=== PATIENT | female | born 1995 | race Caucasian/White ===

== ENCOUNTER → 2016-07-21 | Outpatient (CLI) | payer BC ==
--- NOTE | 2016-07-21 16:47 | RADRPT ---
PROCEDURE: XR Chest. CLINICAL INDICATION: Cough. TECHNIQUE: PA and Lateral views of the chest were obtained. COMPARISON: No. FINDINGS: The heart is normal in size. The left-sided aorta is normal. The trachea and hilar structures are normal. The lungs are clear. The diaphragms are flattened. No pleural effusion is noted. The bon y elements are normal. IMPRESSION: 1. No evidence of active cardiopulmonary disease. RPTAT:AAJJ Physician Sheng Date Time Electronically viewed and signed by Physician Sheng on 07/21/2016 16:47 ANGELO/
== END | disposition home or self-care (01) ==
LOC: RAD 15:04
PROVIDERS: ATTEND Internal Medicine
DX: R05 Cough (principal)
CPT/HCPCS: 71020

== ENCOUNTER → 2016-08-04 | Outpatient (CLI) | payer BC ==
[2016-08-04 15:41] LABS: ADD UMIC NO; URINE BILIRUBIN (Dip) NEGATIVE (NEGATIVE); URINE BLOOD (Dip) NEGATIVE (NEGATIVE); URINE COLOR LT. YELLOW (YELLOW); URINE GLUCOSE (Dip) NEGATIVE (NEGATIVE); URINE KETONES (Dip) NEGATIVE (NEGATIVE); URINE LEUKOCYTE ESTERASE (Dip) NEGATIVE (NEGATIVE); URINE NITRITE (Dip) NEGATIVE (NEGATIVE); URINE TOTAL PROTEIN (Dip) NEGATIVE (NEGATIVE); URINE UROBILINOGEN (Dip) 0.2 E.U./dL (0.1-1.0)
[2016-08-04 16:11] LABS: ALBUMIN 3.9 g/dl (3.3-4.9); POTASSIUM 4.3 mmol/L (3.5-5.1)
[2016-08-04 16:13] LABS: CREATININE 0.62 mg/dl (0.44-1.00)
[2016-08-04 16:14] LABS: ALBUMIN/GLOBULIN RATIO 0.92; BILIRUBIN,INDIRECT 0.5 mg/dl (0-1.1); BILIRUBIN,TOTAL 0.5 mg/dl (0.2-1.3); CALCIUM 9.2 mg/dl (8.4-10.2); TOTAL PROTEIN 8.1 g/dl (6.1-8.1)
[2016-08-04 16:15] LABS: CHOL/HDL RATIO 4.3 RATIO
== END | disposition home or self-care (01) ==
LOC: LAB 15:07
PROVIDERS: ATTEND Internal Medicine
DX: R73.9 Hyperglycemia, unspecified (principal)
CPT/HCPCS: 80053; 80061; 81003; 83036